=== PATIENT | female | born 1985 | race Caucasian/White ===

== ENCOUNTER 2024-11-23 12:22 | Emergency (ER) | payer OTHER ==
[2024-11-23 12:35] VITALS: RESP 17; TEMP 97.1; O2SAT 100
--- NOTE | 2024-11-23 12:50 | ERPHSYRPT ---
- History of Present Illness Time Seen by Provider: 11/23/24 12:26 Physician History: This is a 39-year-old female with a known history of migraine headaches who has exacerbation of her usual headache which this time has not gone away to her usual Excedrin. Patient has had no history of trauma or injury. No neurologic symptoms. No numbness or tingling. No focal neurologic changes. No speech or swallowing difficulty. No gait abnormalities. Patient was out in the heat yesterday boating. She has had no nausea or vomiting. No neck pain or stiffness. Denies other past medical history. Does not smoke, drink or use drugs Allergies/Adverse Reactions: No Known Drug Allergies Allergy (Verified 11/23/24 12:28) Home Medications: Fluoxetine HCl 40 mg PO DAILY 11/23/24 [History] Semaglutide [Wegovy] 0.5 mg SQ Q14D 11/23/24 [History] - Review of Systems All Other Systems: Reviewed and Negative (As per HPI otherwise negative) - Past Medical History Pertinent Past Medical History: Yes Neurological History: Migraines Psycho-Social History: Anxiety - Past Surgical History Past Surgical History: Yes Female Surgical History: Section, Breast Implant - Nursing Vital Signs Nursing Vital Signs: Initial Vital Signs Temperature 97.1 F 11/23/24 12:22 Pulse Rate 83 11/23/24 12:22 Respiratory Rate 17 11/23/24 12:22 Blood Pressure 139/79 11/23/24 12:22 O2 Sat by Pulse Oximetry 100 11/23/24 12:22 Pain Scale Pain Intensity 2 - Physical Exam SpO2: 100 Comments: 11/23/24 12:49 General: Well-nourished well-developed. No apparent distress. HEENT: Normocephalic atraumatic no obvious facial or neck deformity or injury. Neck: Supple. No deformity or mass noted. Negative Kernig's and Brudzinski sign. CV: RRR NL Perfusion. No edema Resp: No Respiratory distress or adventitious breath sounds Abd: ND SNT MSK: No deformity or TTP Neuro: [place] and [place] x4. Cranial nerves II through XII intact. Pupils equal reactive and round to light. Extraocular motility intact.+5/5 motor throughout. Sensory intact. +2/4 DTRs throughout. No focal neurologic c hanges. NIH stroke scale 0 Psych: No SI, HI or grave disability Ordered Tests: Active Orders 24 hr Category Date Time Status HEAD WITHOUT CONTRAST [CT] Stat Exams 11/23/24 12:45 Completed Medication Summary Discontinued Medications Generic Name Dose Route Start Last Admin Trade Name Renata PRN Reason Stop Dose Admin Diphenhydramine HCl 25 mg 11/23/24 12:46 11/23/24 13:05 Diphenhydramine Hcl 50 Mg/Ml Vial IV 11/23/24 12:47 25 mg STAT ONE Administration Diphenhydramine HCl Confirm 11/23/24 13:03 Diphenhydramine Hcl 50 Mg/Ml Vial Administered 11/23/24 13:04 Dose 50 mg .ROUTE .STK-MED ONE Sodium Chloride 1,000 mls @ 999 mls/hr 11/23/24 12:46 11/23/24 14:07 Sodium Chloride 0.9% 1000 Ml IV 11/23/24 13:46 Infused .Q1H1M STA Infusion Sodium Chloride Confirm 11/23/24 13:03 Sodium Chloride 0.9% 1000 Ml Administered 11/23/24 13:04 Dose 1,000 mls @ ud .ROUTE .STK-MED ONE Metoclopramide HCl 10 mg 11/23/24 12:46 11/23/24 13:06 Metoclopramide Hcl 10 Mg/2 Ml Vial IV 11/23/24 12:47 10 mg STAT ONE Administration Metoclopramide HCl Confirm 11/23/24 13:03 Metoclopramide Hcl 10 Mg/2 Ml Vial Administered 11/23/24 13:04 Dose 10 mg .ROUTE .STK-MED ONE - Progress Progress Note: 11/23/24 13:46 Patient headache free. Awaiting CT result. If negative will discharge home. Patient likely has dehydration and heat exhaustion as component of exacerbated her chronic headaches. The patient's condition was discussed with themselves and/or family members in great detail. Precautions are given and need to return or call 911 immediately for any changes or worsening are discussed. Instructions on patient's condition and noting that conditions can change or worsen and that diagnosis are presumptive and can evolve are discussed. All questions were answered. All concerns addressed at this time 11/23/24 14:09 CT of head without contrast negative. Patient asymptomatic. Will discharge. - Departure Departure Disposition: Home Clinical Impression: Dehydration Headache Qualifiers: Headache type: unspecified Headache chronicity pattern: unspecified pattern Intractability: not intractable Qualified Code(s): R51.9 - Headache, unspecified Heat exhaustion Qualifiers: Encounter type: initial encounter Qualified Code(s): T67.5XXA - Heat exhaustion, unspecified, initial encounter Condition: Stable Critical Care Time: No Referrals: ELISHA NEGRETE NP [Primary Care Provider, [facility]] - Follow up/PCP as directed Instructions: Headache, Adult (DC), Dehydration in adults - ED discharge instructions, Heat illness - ED discharge instructions Additional Instructions: You have been evaluated for an emergency medical condition. At this time, given the current history and events presented, the examination conducted and any possible testing you may have had, you have been given a presumptive diagnosis based on the current information is obtained. Your discharge diagnosis is presumptive and not necessarily definitive. Medical conditions present in various stages very often without all the symptoms or findings described in medical literature. Other symptoms, concerns or conditions may arise and your diagnoses may evolve or change and/or your condition could potentially worsen after the time of disposition or discharge. You have been given a presumptive diagnosis and your condition appears to be stable, but your medical issues can change or worsen. If there is worsening of your condition including difficulty breathing, swallowing, speaking, chest pain or pressure, intractable vomiting, worsening or changing mental status, numbness, tingling or weakness of your body or arms or legs, thoughts or plans of harming yourself or others, or any other concerns, call 911 and/or return immediately to the closest emergency department. It is important you follow-up with your doctor on the next business day. Call your doctor, or the referral provided if you do not have a doctor, when they open to schedule a follow-up appointment in the next 1 or latest 2 days. Please refer to the attached sheet. If you do not have primary care doctor, you can call the [facility] referral line at [phone]. Return immediately if your symptoms worsen or if you are unable to obtain further care. My team and I thank you for choosing the [facility] Emergency Department emergency healthcare needs. We wish you a speedy recovery. Very respectfully, Dr. Jose R Hinkle M.D. [place] [employer] Board-certified Emergency Physician
[2024-11-23] MEDS ORDERED: Reglan 10 MG/2 ML ONE (13:03)
[2024-11-23] MEDS ORDERED: BENADRYL 50 MG/ML ONE (13:03)
[2024-11-23] MEDS: BENADRYL 50 MG/ML IV ONE (13:05)
[2024-11-23] MEDS: Reglan 10 MG/2 ML IV ONE (13:06)
[2024-11-23 14:04] VITALS: BP 110/66; PULSE 72
--- NOTE | 2024-11-23 14:05 | XRAY ---
Indication: Headache. Multiple contiguous axial images obtained through the head without contrast. Comparison: None Normal appearing brain parenchyma, ventricles, and bony calvarium. Visualized paranasal sinuses and mastoid air cells are clear. Impression: Normal CT head without contrast exam.
== END 2024-11-23 14:21 | disposition home or self-care (01) ==
LOC: ED 12:22
DX: E86.0 Dehydration (principal); R51.9 Headache, unspecified; T67.5XXA Heat exhaustion, unspecified, initial encounter; Z79.85 Long-term (current) use of injectable non-insulin antidiabetic drugs; Z79.899 Other long term (current) drug therapy